=== PATIENT | male | born 1960 | race Caucasian/White ===

== ENCOUNTER 2024-02-25 20:14 | Inpatient (IN) | payer OTHER, SELFPAY ==
[2024-02-25 16:33] VITALS: BP 148/91
[2024-02-25 17:01] LABS: Urine Albumin 1+ (Neg - Trace); Urine Bilirubin 1+ (Negative); Urine Character Clear (Clear); Urine Color Amber; Urine Glucose Negative (Negative); Urine Ketone 1+ (Negative); Urine Leukocyte 1+ (Negative); Urine Nitrite Positive (Negative); Urine Occult Blood 1+ (Negative); Urine Specific Gravity 1.025 (<1.030); Urine Urobilinogen 2+ (Neg - 1+)
[2024-02-25 17:02] LABS: % Basophils 0.5 % (0-2); % Immature Granulocytes 1.2 % (0-0.5); % Lymphocytes 7.1 % (20.5-51.1); % Monocytes 2.6 % (1.7-9.3); % Neutrophils 88.6 % (42.2-75.2); Absolute Basophils 0.1 10^3/uL (0-0.2); Absolute Immature Granulocytes 0.3 10^3/uL (0-0.05); Absolute Lymphocytes 1.6 10^3/uL (1.2-3.4); Absolute Monocytes 0.6 10^3/uL (0.1-0.6); Absolute Neutrophils 20.4 10^3/uL (1.4-6.5); Hematocrit 38.9 % (39.0-52.0); Hemoglobin 13.8 g/dL (13.0-18.0); Mean Corp Hgb Conc. 35.5 g/dL (33.0-37.0); Mean Corpuscular Hgb 32.7 pg (27.0-31.0); Mean Corpuscular Volume 92.2 fL (80.0-94.0); Nucleated Red Blood Cells % 0 % (-); Platelet Count 208 10^3/uL (130-400); Red Blood Cell Count 4.22 10^6/uL (4.70-6.10); Red Cell Dist. Width 13.2 % (11.5-14.5); White Blood Cell Count 23.1 10^3/uL (4.8-10.8)
[2024-02-25 17:13] LABS: Urine Squamous Cell 0-2 /LPF (Few)
[2024-02-25 17:15] LABS: Urine Bacteria Moderate (Negative); Urine White Cell 16-20 /HPF (0-5)
[2024-02-25 17:17] LABS: ALT (SGPT) 34 U/L (0-50); AST (SGOT) 58 U/L (17-59); Albumin 4.1 g/dl (3.5-5.0); Alkaline Phosphatase 108 U/L (38-126); Blood Urea Nitrogen 28 mg/dl (9-20); Calcium 9.2 mg/dl (8.4-10.2); Carbon Dioxide 28 mmol/L (22-30); Chloride 97 mmol/L (98-107); Glucose 154 mg/dl (70-99); Potassium 4.4 mmol/L (3.5-5.1); Sodium 133 mmol/L (135-145); Total Bilirubin 4.6 mg/dl (0.2-1.3); Total Protein 7.8 g/dl (6.3-8.2); eGFR > 60.00
[2024-02-25 18:07] VITALS: BP 155/79
--- NOTE | 2024-02-25 18:10 | ED.GENMED ---
History of Present Illness
General
Chief Complaint: Fever
Time Seen by Provider: 02/25/24 18:10
Travel History
Have you had any contact with someone who has COVID-19?: No
Do you have any symptoms of coronavirus? Fever > 100 degrees, chills, cough, shortness of breath, sore throat, loss of taste or smell, muscle aches, or headache?: No
History of Present Illness
History of Present Illness:
HPI: Patient presents with fevers and myalgias associate with nausea. He reports having COVID flu and strep test that were all negative during care. He also had some vague dysuria. He has no back pain or other symptoms that would be suggestive of
a ureteral stone. He has no cough.
EXAM:
GENERAL: Well appearing in no distress
HEENT: Moist oral mucosa
CARDIOVASCULAR: No murmurs, initial heart rate was tachycardic, regular rhythm, No chest wall tenderness
PULMONARY: No respiratory distress, breath sounds are clear and equal
ABDOMEN: Soft with no peritoneal signs, no tenderness
NEUROLOGIC: Excellent strength all extremities, no coordination deficits
PSYCHIATRIC: Appropriate mental status, normal insight and judgement
EXTREMITIES: Nontender, no edema, moves all extremities equally
SKIN: No rash, no lesions
TIME OF INITIAL ENCOUNTER: 6:40 PM
NUMBER AND COMPLEXITY OF PROBLEMS ADDRESSED AT THE ENCOUNTER
� Chronic conditions affecting care: No significant past medical history
� Acute Exacerbation and/or Progression of Chronic Illness: This is an acute problem
� Differential Diagnosis includes: UTI, sepsis, COVID/flu has been ruled out by urgent care, pneumonia unlikely as he has no cough and clear lungs
AMOUNT AND/OR COMPLEXITY OF DATA TO BE REVIEWED AND ANALYZED
� I performed an independent evaluation of and my interpretation is:
EKG:
CT:
X-rays:
Laboratory Studies: White count is 23.1, urinalysis shows 16-20 white cells with positive nitrite
Other:
� Review of other/old records: No old records available for review
� Clinical information was obtained by an independent historian: None needed
� Prescriptions/Medications Considered but not given:
� Further testing considered but not performed:
RISK OF COMPLICATIONS AND/OR MORBIDITY OR MORTALITY OF PATIENT MANAGEMENT
� Social determinants of health affecting care: Lives at home
� Discussion with other providers: Hospitalist for admission at 7:02 PM, Dr. Castillo.
� Escalation of care including admission/observation vs risk of discharge considered: Consider discharge however the patient's white count is 23,000 and he arrived tachycardic with a heart rate of 109. I am concerned for the
likelihood of sepsis due to UTI. He has no pain currently therefore doubt infected ureteral stone. Lactic was normal.
Phy Exam
Physical Exam
Physical Exam:
See HPI
Course
Orders/Labs/Results
Orders:
Orders
02/25/24 16:47
Complete Blood Count/With Diff Urgent
Comprehensive Metabolic Panel Urgent
Urinalysis Reflex To Culture Urgent
Date Specimen was Collected: 02/25/24
Time Specimen was Collected: 16:39
Urine Microscopic Reflex Cult Urgent
Urine Culture Urgent
ANNA Source: U
Specimen Description:
Date Specimen was Collected: 02/25/24
Time Specimen was Collected: 16:39
02/25/24 18:11
0.9% Sodium Chloride 1000 ml [Nss] 1,000 ml IV BOLUS
02/25/24 18:24
Lactic Acid Q4H
Comment: CANCEL 2nd LACTIC ACID IF 1st LACTIC ACID IS LESS THAN 2
Blood Culture Q30M
ANNA Source: Blood/Venous
Specimen Description:
Blood Culture Q30M
ANNA Source: Blood/Venous
Specimen Description:
02/25/24 19:02
CefTRIAXone [Rocephin] 1,000 mg IV NOW STA
Abnormal Lab Results
02/25/24
16:47
WBC 23.1 H 10^3/uL
(4.8-10.8)
RBC 4.22 L 10^6/uL
(4.70-6.10)
Hct 38.9 L %
(39.0-52.0)
MCH 32.7 H pg
(27.0-31.0)
Abs Immat Gran (auto) 0.3 H 10^3/uL
(0-0.05)
Absolute Neuts (auto) 20.4 H 10^3/uL
(1.4-6.5)
Immature Gran % 1.2 H %
(0-0.5)
Neutrophils % 88.6 H %
(42.2-75.2)
Lymphocytes % 7.1 L %
(20.5-51.1)
Sodium 133 L mmol/L
(135-145)
Chloride 97 L mmol/L
(98-107)
BUN 28 H mg/dl
(9-20)
Glucose 154 H mg/dl
(70-99)
Total Bilirubin 4.6 H mg/dl
(0.2-1.3)
Urine Ketones 1+ A
(Negative)
Ur Occult Blood Reflex 1+ A
(Negative)
Urine Nitrite (Reflex) Positive A
(Negative)
Urine Bilirubin 1+ A
(Negative)
Urine Urobilinogen 2+ A
(Neg - 1+)
Leukocyte Esterase Rfl 1+ A
(Negative)
Urine RBC 3-6 A /HPF
(0-2)
Urine WBC (Reflex) 16-20 A /HPF
(0-5)
Urine Bacteria (Reflex) Moderate A
(Negative)
Urine Albumin (Reflex) 1+ A
(Neg - Trace)
02/25/24 16:47
02/25/24 16:47
Vital Signs
Initial and Last Documented VS:
Initial Vital Signs
Temp Pulse Resp BP Pulse Ox
99.2 F 109 20 148/91 99
02/25/24 16:33 02/25/24 16:33 02/25/24 16:33 02/25/24 16:33 02/25/24 16:33
Last Documented Vital Signs
Temp Pulse Resp BP Pulse Ox
99.6 F 88 16 155/79 97
02/25/24 18:58 02/25/24 18:08 02/25/24 18:08 02/25/24 18:07 02/25/24 18:45
*Critical Care Note
Total Time (30-74mins, 75-104mins- exclusive of procedures): Not Applicable
ED Attending Note
-
Portions of this chart may have been created with voice recognition software.� Occasional wrong word or��sound alike� substitutions may have occurred due to the inherent limitations of voice recognition software.
Discharge Plan
Departure
Patient Disposition: Admit
Date of Disposition: 02/25/24
Time of Disposition: 19:05
Presentation/result/management discussed w/ accepting MD/DO: Hospitalist
Discharge Problem:
Acute UTI, Sepsis
Referrals:
NONE,* [Family Provider] -
Interventions
Interventions:
*General Assessment Last Done: 02/25/24 16:33
*Neglect/Abuse Screening Last Done: 02/25/24 16:33
ED- Fall Risk Assessment Last Done: 02/25/24 18:09
*ED COVID-19 Vaccine History Last Done: 02/25/24 18:28
ED- Neurological Assessment Last Done: 02/25/24 18:08
ED-Skin Assessment Last Done: 02/25/24 18:08
Discharge Date and Time
Print Language: [place] CITIZEN
[2024-02-25] MEDS: NSS 1000 IV ×2 (18:28→21:16)
[2024-02-25 18:46] LABS: Lactic Acid 1.7 mmol/L (0.7-2.0)
[2024-02-25 19:00] VITALS: BP 123/79
--- NOTE | 2024-02-25 19:06 | HPS.HSE ---
Addendum entered and electronically signed by Elvira Castillo MD 03/04/24 18:43:
Allergies
Allergy/AdvReac Type Severity Reaction Status Date / Time
No Known Allergies Allergy Verified 02/25/24 16:37
Home Medications
acetaminophen 500 mg tablet 1,000 mg PO Q6H PRN mild pain 02/25/24
ibuprofen 200 mg capsule 400 mg PO Q6H PRN mild pain 02/25/24
finasteride 5 mg tablet 5 mg PO DAILY #30 tabs 02/28/24
levofloxacin 750 mg tablet 750 mg PO DAILY #10 tabs 02/28/24
phenazopyridine 100 mg tablet 100 mg PO Q8 PRN urinary pain #30 tabs 02/28/24
tamsulosin 0.4 mg capsule 0.8 mg (2 x 0.4 mg) PO DAILY #60 caps 02/28/24
Addendum entered and electronically signed by Elvira Castillo MD 02/25/24 22:48:
PVR was 65ml
Original Note:
Family Physician
-
Family Physician: * NONE
Chief Complaint
-
fevers
History of Present Illness
Mr. Eddy Breaux is a 63 yo man with hx presents to the ER with fevers x 3 days. He was seen at with negative testing for flu, covid and strep.
Patient reports that over the past few days he has had urinary urgency but then not a significant amount of urine will exit. He saw mild hematuria today. He denies any pain in groin, abdomen or back. He has had fevers up to 101. Associated with
nausea and decreased appetite. No vomtiing. No diarrhea.
No headache. No chest pain. No shortness of breath. Patient has chronic right knee swelling and is due for an outpatient MRI. Right knee is not red or tender to touch. He can flex knee but it hurts when he walks. No rash.
Patient reports he has had some difficulty with urinating over past several months.
Medical History
Past Medical History
Past Medical History: Reports Other (patient was diagnosed with hypertension and prescribed medication but lost weight on his own and does not need medication now (never took))
Past Surgical History: Reports None
Social History
Tobacco: Other (occasional cigars )
Alcohol: None
Family History
Family History: Not pertinent
Allergies / Home Medications
Allergies reflects when Allergies were last updated in [employer].
Home Medications with original date entered in [employer]
Allergy/Medication List:
Allergies
Allergy/AdvReac Type Severity Reaction Status Date / Time
No Known Allergies Allergy Verified 02/25/24 16:37
Review of Systems
-
History Source: Patient
A 12 point ROS was completed and negative except as noted: Yes
Physical Exam
Vital Signs
Vital Signs
Temp Pulse Resp BP Pulse Ox
99.6 F 88 16 155/79 97
02/25/24 18:58 02/25/24 18:08 02/25/24 18:08 02/25/24 18:07 02/25/24 18:45
Physical Exam
General: No Apparent Distress
HEENT: PERRLA
Respiratory: Clear; No Wheezes
Cardiac: S1/S2 and Regular Rhythm
GI: Soft, Non Tender and Non Distended
Genito-urinary: No costovertebral tender
Musculoskeletal: Other (right knee with swelling, non-tender, no erythema; can flex knee without pain ); No Clubbing, No Clubbing or Cyanosis
Skin: Warm and Dry; No Rash
Neuro: AO x 3
Psych: Calm
Laboratory Results
-
02/25/24 16:47
02/25/24 16:47
Laboratory Results
Lactic Acid Cancelled 02/25/24 22:15
Total Bilirubin 4.6 mg/dl (0.2-1.3) H 02/25/24 16:47
AST 58 U/L (17-59) 02/25/24 16:47
ALT 34 U/L (0-50) 02/25/24 16:47
Alkaline Phosphatase 108 U/L (38-126) 02/25/24 16:47
Data Reviewed
-
Diagnostic Radiology: Report Reviewed by me
Lab Data: Labs Reviewed by me
Impression/Plan
-
Mr. Eddy Breaux is a 63 yo man with hx presents to the ER with fevers x 3 days in setting of urinary urgency. He was seen at with negative testing for flu, covid and strep.
Triage VS: T 99.2, P 109, RR 20, BP 148/91, SpO2 99%
LABS: WBC 23.1, Hg 13.8, PLT 208, Na 133, K+ 4.4, Cl 97, BUN 28, Cr 1.1, Glucose 154, T. Bili 4.6, lactate 1.7
UA with 16-20 WBC, 1+ leuk esterase, 3-6 RBC
SEPSIS 2/2 UTI
URINARY URGENCY
-patient denies back pain or groin/pelvic pain to suggest nephrolithiasis, patient with likely predisposing BPH given report of difficulty urinating
-admit to tele
-F/U PVR
-continue IV Ceftriaxone started in ER
-IVF
-F/U urine and blood cultures
-if slow response to antibiotics, patient would need a CT
-outpatient Urology referral given likely BPH
DVT PPx Lovenox subQ
FULL CODE
[2024-02-25] MEDS: ROCEPHIN 1000 MG IV (19:21)
[2024-02-25 20:00] VITALS: BP 125/75
[2024-02-25 21:00] VITALS: BP 118/72
[2024-02-26] VITALS (10 sets, daily range): BP systolic 109–166; BP diastolic 74–91
[2024-02-26] MEDS: TYLENOL 650 MG PO ×5 (00:51→23:25)
[2024-02-26 05:44] LABS: % Basophils 0.3 % (0-2); % Immature Granulocytes 1.4 % (0-0.5); % Lymphocytes 10.5 % (20.5-51.1); % Monocytes 4.5 % (1.7-9.3); % Neutrophils 83.3 % (42.2-75.2); Absolute Basophils 0.1 10^3/uL (0-0.2); Absolute Immature Granulocytes 0.2 10^3/uL (0-0.05); Absolute Lymphocytes 1.8 10^3/uL (1.2-3.4); Absolute Monocytes 0.8 10^3/uL (0.1-0.6); Absolute Neutrophils 13.8 10^3/uL (1.4-6.5); Hematocrit 33.2 % (39.0-52.0); Hemoglobin 11.9 g/dL (13.0-18.0); Mean Corp Hgb Conc. 35.8 g/dL (33.0-37.0); Mean Corpuscular Hgb 33.1 pg (27.0-31.0); Mean Corpuscular Volume 92.2 fL (80.0-94.0); Mean Platelet Volume 9.1 fL (7.4-10.4); Nucleated Red Blood Cells % 0 % (-); Platelet Count 154 10^3/uL (130-400); Red Cell Dist. Width 13.3 % (11.5-14.5); White Blood Cell Count 16.6 10^3/uL (4.8-10.8)
[2024-02-26 06:12] LABS: ALT (SGPT) 34 U/L (0-50); AST (SGOT) 52 U/L (17-59); Albumin 3.1 g/dl (3.5-5.0); Alkaline Phosphatase 103 U/L (38-126); Blood Urea Nitrogen 23 mg/dl (9-20); Calcium 8.2 mg/dl (8.4-10.2); Carbon Dioxide 23 mmol/L (22-30); Chloride 104 mmol/L (98-107); Direct Bilirubin 0.8 mg/dl (0.0-0.4); Estimated Creatinine Clearance 91 ml/min; Glucose 107 mg/dl (70-99); Magnesium 1.9 mg/dl (1.6-2.3); Potassium 3.7 mmol/L (3.5-5.1); Sodium 132 mmol/L (135-145); Total Protein 6.4 g/dl (6.3-8.2); eGFR > 60.00
[2024-02-26] MEDS: NSS 1000 IV ×2 (07:12→18:06)
--- NOTE | 2024-02-26 09:50 | W.PN.HOSP.TC ---
Today's Communication/Plan
-
continue Rocephin, IVF
CT scan of abd/pelvis
pending progression, consider urology referral
Assessment / Plan
Assessment / Plan
Mr. Eddy Breaux is a 63 yo man with hx presents to the ER with fevers x 3 days in setting of urinary urgency. He was seen at with negative testing for flu, covid and strep.
Triage VS: T 99.2, P 109, RR 20, BP 148/91, SpO2 99%
LABS: WBC 23.1-->16.6, Hg 13.8, PLT 208, Na 133-->132, K+ 4.4, Cl 97, BUN 28, Cr 1.1, Glucose 154, T. Bili 4.6, lactate 1.7
UA with 16-20 WBC, 1+ leuk esterase, 3-6 RBC
SEPSIS 2/2 UTI
URINARY URGENCY, pt continues to feel he is having difficulty in passing urine
-patient denies back pain or groin/pelvic pain to suggest nephrolithiasis, patient with likely predisposing BPH given report of difficulty urinating
-admit to tele
-F/U PVR
-continue IV Ceftriaxone started in ER
-IVF
-F/U urine and blood cultures
-As pt not ready for dc, will order a CT
-outpatient Urology referral given likely BPH
DVT PPx Lovenox subQ
FULL CODE
Anticipated Discharge: 24 - 48 hours
Subjective/Interval History
-
Date of Service: February 26, 2024
Awake, alert
Objective Data
-
Labs:
Laboratory Results
02/26/24
05:36
WBC 16.6 H
Hgb 11.9 L
Hct 33.2 L
Plt Count 154 D
Sodium 132 L
Potassium 3.7
Chloride 104
Carbon Dioxide 23
BUN 23 H
Creatinine 0.9
Glucose 107 H
Calcium 8.2 L
Total Bilirubin 3.0 H
AST 52
ALT 34
Alkaline Phosphatase 103
Vital Signs:
Vital Signs
Temp Pulse Resp BP Pulse Ox
99.8 F 81 18 149/79 98
02/26/24 07:20 02/26/24 07:20 02/26/24 07:20 02/26/24 07:20 02/26/24 07:20
I&O
02/25/24 02/26/24 02/27/24
06:59 06:59 06:59
Output Total 325 / 325
Balance -325 / -325
Review of Systems
-
History Source: Patient
Constitutional: Denies Fever (99.8)
Respiratory: Reports No Symptoms
Cardiac: Reports No Symptoms
Abdomen/GI: Reports No Symptoms
Physical Exam
-
General: Well Developed, Well Nourished and No Apparent Distress
HEENT: Normocephalic, Atraumatic and Moist Mucous Membranes
Respiratory: Clear to Auscultation; Negative Wheezes, Rales or Rhonchi
Cardiac: Regular Rhythm and S1/S2
GI: Soft, Nontender and Nondistended
Musculoskeletal: No Clubbing, No Cyanosis and No Edema
Neuro: Awake, Alert and Oriented
[2024-02-26] MEDS: LOVENOX 40 MG SC (17:32)
[2024-02-26] MEDS: ROCEPHIN 1000 MG IV (19:43)
[2024-02-26] MEDS: STERILE WATER FOR INJECTION 10 ML IV (19:44)
[2024-02-26] MEDS: Pyridium 100 MG PO (20:45)
[2024-02-26] MEDS: ZOFRAN 4 MG PO (20:45)
[2024-02-27] MEDS: NSS 1000 IV ×3 (00:39→23:39)
[2024-02-27 03:39] VITALS: BP 139/76
[2024-02-27 07:30] VITALS: BP 155/90
[2024-02-27] MEDS: TYLENOL 650 MG PO ×2 (09:35→20:12)
[2024-02-27] MEDS: Pyridium 100 MG PO ×3 (09:43→23:42)
--- NOTE | 2024-02-27 09:52 | W.PN.HOSP.TC ---
Today's Communication/Plan
-
follow WBC, fever curve
continue Rocephin
continue IVF
add Flomax/Proscar for suspected BPH
Assessment / Plan
Assessment / Plan
Assessment:
Sepsis (leukocytosis, E. Coli UTI, tachycardia, fever)
- suspected underlying BPH
- CT: Evaluation, particularly of the urinary tract markedly limited without intravenous contrast, without gross findings to suggest obstructive uropathy bilaterally. Mild bilateral nonspecific perinephric stranding. Evaluation for focal infectious
process of the kidneys such as pyelonephritis markedly limited without intravenous contrast. Unopacified virtually completely empty urinary bladder with at least mild relative diffuse wall thickening which may be on the basis of underdistention or
bladder outlet obstruction (prostate gland enlargement). Unfortunately, intrinsic urinary bladder abnormality such as cystitis cannot be excluded.
- continue Rocephin, day 214. Urine culture with multi-drug resistance E. Coli. Bcx so far NGTD.
- follow PVRs
- add Flomax/Proscar
- continue Pyridium
- avoid SC/Díaz if able
Hyponatremia
- continue IVF; monitor BMP
DVT ppx: Lovenox
Code: Full
Anticipated Discharge: 24 - 48 hours
Subjective/Interval History
-
Date of Service: February 27, 2024
Febrile this morning, 101
reports slow improving
Objective Data
-
Labs:
Laboratory Results
02/27/24
09:42
WBC Pending
Hgb Pending
Hct Pending
Plt Count Pending
Sodium Pending
Potassium Pending
Chloride Pending
Carbon Dioxide Pending
BUN Pending
Creatinine Pending
Glucose Pending
Calcium Pending
Vital Signs:
Vital Signs
Temp Pulse Resp BP Pulse Ox
101.1 F H 73 20 155/90 98
02/27/24 07:30 02/27/24 07:30 02/27/24 07:30 02/27/24 07:30 02/27/24 07:30
I&O
02/26/24 02/27/24 02/28/24
06:59 06:59 06:59
Intake Total 480 / 480
Output Total 325 / 325
Balance -325 / -325 480 / 480
Physical Exam
-
General: No Apparent Distress
HEENT: Normocephalic and Atraumatic
Respiratory: Negative Wheezes or Rales
Cardiac: Regular Rhythm and S1/S2
GI: Soft and Nontender
Genito-urinary: No Costovertebral Tender
Neuro: AO x 3
Psych: Calm
Data Reviewed
-
Total Time Spent with Patient (in minutes): 44
Labs: Labs Reviewed by me
[2024-02-27 10:40] LABS: % Basophils 0.5 % (0-2); % Eosinophils 0.2 % (0-6); % Immature Granulocytes 0.3 % (0-0.5); % Lymphocytes 13.3 % (20.5-51.1); % Monocytes 3.7 % (1.7-9.3); Absolute Lymphocytes 0.8 10^3/uL (1.2-3.4); Absolute Monocytes 0.2 10^3/uL (0.1-0.6); Absolute Neutrophils 4.8 10^3/uL (1.4-6.5); Hemoglobin 11.4 g/dL (13.0-18.0); Mean Corp Hgb Conc. 35.6 g/dL (33.0-37.0); Mean Corpuscular Hgb 33.7 pg (27.0-31.0); Mean Corpuscular Volume 94.7 fL (80.0-94.0); Mean Platelet Volume 9.4 fL (7.4-10.4); Nucleated Red Blood Cells % 0 % (-); Platelet Count 156 10^3/uL (130-400); Red Blood Cell Count 3.38 10^6/uL (4.70-6.10); Red Cell Dist. Width 13.2 % (11.5-14.5); White Blood Cell Count 5.9 10^3/uL (4.8-10.8)
[2024-02-27 11:00] VITALS: BP 154/92
[2024-02-27 11:16] LABS: Blood Urea Nitrogen 21 mg/dl (9-20); Calcium 8.4 mg/dl (8.4-10.2); Carbon Dioxide 22 mmol/L (22-30); Chloride 107 mmol/L (98-107); Estimated Creatinine Clearance 102 ml/min; Glucose 131 mg/dl (70-99); Potassium 3.7 mmol/L (3.5-5.1); Sodium 133 mmol/L (135-145); eGFR > 60.00
[2024-02-27] MEDS: FLOMAX 0.800000000000000044 MG PO (11:37)
[2024-02-27] MEDS: PROSCAR 5 MG PO (11:38)
[2024-02-27 16:00] VITALS: BP 146/86
--- NOTE | 2024-02-27 16:55 | CM ---
passport support manager reviewed patient's chart and met with patient and patient lives with significant other in a 2 story home, patient is independent with adl's and ambulation, no dme, patient drives. [facility] pharmacy, no PCP, manager of case management provided patient with
a list of local PCP's.
Plan; Home when stable, no needs.
[2024-02-27] MEDS: LOVENOX 40 MG SC (17:02)
[2024-02-27 20:01] VITALS: BP 156/95
[2024-02-27] MEDS: STERILE WATER FOR INJECTION 10 ML IV (20:13)
[2024-02-27] MEDS: ROCEPHIN 1000 MG IV (20:13)
[2024-02-27 23:37] VITALS: BP 149/93
[2024-02-28 03:52] VITALS: BP 151/75
[2024-02-28 07:00] VITALS: BP 159/94
[2024-02-28 07:08] LABS: Hematocrit 32.9 % (39.0-52.0); Hemoglobin 11.4 g/dL (13.0-18.0); Mean Corp Hgb Conc. 34.7 g/dL (33.0-37.0); Mean Corpuscular Hgb 32.4 pg (27.0-31.0); Mean Corpuscular Volume 93.5 fL (80.0-94.0); Mean Platelet Volume 9.5 fL (7.4-10.4); Platelet Count 143 10^3/uL (130-400); Red Blood Cell Count 3.52 10^6/uL (4.70-6.10); Red Cell Dist. Width 13.3 % (11.5-14.5)
[2024-02-28 07:30] LABS: Blood Urea Nitrogen 18 mg/dl (9-20); Calcium 8.4 mg/dl (8.4-10.2); Carbon Dioxide 21 mmol/L (22-30); Chloride 109 mmol/L (98-107); Estimated Creatinine Clearance 102 ml/min; Glucose 106 mg/dl (70-99); Potassium 3.8 mmol/L (3.5-5.1); Sodium 133 mmol/L (135-145); eGFR > 60.00
[2024-02-28] MEDS: PROSCAR 5 MG PO (08:50)
[2024-02-28] MEDS: Pyridium 100 MG PO (08:50)
[2024-02-28] MEDS: FLOMAX 0.800000000000000044 MG PO (08:50)
[2024-02-28] MEDS: NSS IV (09:10)
--- NOTE | 2024-02-28 09:18 | W.PN.HOSP.TC ---
Addendum entered and electronically signed by Sveta Man MD 02/28/24 09:25:
correction Levaquin 750mg x 10 days
Original Note:
Today's Communication/Plan
-
dc to home today
Assessment / Plan
Assessment / Plan
Assessment:
Sepsis (leukocytosis, E. Coli UTI, tachycardia, fever)
- suspected underlying BPH
- CT: Evaluation, particularly of the urinary tract markedly limited without intravenous contrast, without gross findings to suggest obstructive uropathy bilaterally. Mild bilateral nonspecific perinephric stranding. Evaluation for focal infectious
process of the kidneys such as pyelonephritis markedly limited without intravenous contrast. Unopacified virtually completely empty urinary bladder with at least mild relative diffuse wall thickening which may be on the basis of underdistention or
bladder outlet obstruction (prostate gland enlargement). Unfortunately, intrinsic urinary bladder abnormality such as cystitis cannot be excluded.
- culture with multi-drug resistance E. Coli. Bcx so far NGTD. DC on Levaquin 500mg BID x 11 further days.
- follow PVRs
- continue Flomax/Proscar
- continue Pyridium
- OP Urology f/u this week
Hyponatremia
- continue IVF; monitor BMP
DVT ppx: Lovenox
Code: Full
More than 30 minutes spent in discharge including
Final examination of the patient
Summarizing hospital stay
Instructions for continuing care to all relevant caregivers
Preparation of discharge records, prescriptions, and referral forms
Total time spent (in minutes): 41
Anticipated Discharge: Today
Subjective/Interval History
-
Date of Service: February 28, 2024
temps improving
WBC normalized
Objective Data
-
Labs:
Laboratory Results
02/28/24
05:57
WBC 4.0 L
Hgb 11.4 L
Hct 32.9 L
Plt Count 143
Sodium 133 L
Potassium 3.8
Chloride 109 H
Carbon Dioxide 21 L
BUN 18
Creatinine 0.8
Glucose 106 H
Calcium 8.4
Vital Signs:
Vital Signs
Temp Pulse Resp BP Pulse Ox
99.0 F 66 18 159/94 96
02/28/24 07:00 02/28/24 07:00 02/28/24 07:00 02/28/24 07:00 02/28/24 07:00
I&O
02/27/24 02/28/24 02/29/24
06:59 06:59 06:59
Intake Total 480 / 480 2900 / 2900
Output Total 1550 / 1550
Balance 480 / 480 1350 / 1350
Physical Exam
-
General: No Apparent Distress
HEENT: Normocephalic and Atraumatic
Respiratory: Negative Wheezes or Rales
Cardiac: Regular Rhythm and S1/S2
GI: Soft and Nontender
Genito-urinary: No Costovertebral Tender
Musculoskeletal: No Edema
Neuro: AO x 3
Hematologic / Lymphatic: No Lymphadenopathy
Psych: Calm
Data Reviewed
-
Total Time Spent with Patient (in minutes): 41
Labs: Labs Reviewed by me
--- NOTE | 2024-02-28 09:19 | PTCARENOTE ---
Dr Man at bedside. Discharge orders to be placed. Note for returning to work obtained and given to patient. IVF d/c'd
--- NOTE | 2024-02-28 09:23 | W.DS.TRANS ---
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
-
Discharge Instructions:
Discharge Diagnosis/Procedures E. coli UTI in setting of likely enlarged
prostate
Diet Regular
Activity As tolerated
Bathing Restrictions None
Instructions:
Stand-Alone Forms:
Changes to Home Medications: No
Discharge Medications:
DC Medications w/original date entered in [employer]
acetaminophen 500 mg tablet 1,000 mg PO Q6H PRN mild pain 02/25/24
ibuprofen 200 mg capsule 400 mg PO Q6H PRN mild pain 02/25/24
finasteride 5 mg tablet 5 mg PO DAILY #30 tabs 02/28/24
levofloxacin 750 mg tablet 750 mg PO DAILY #10 tabs 02/28/24
phenazopyridine 100 mg tablet 100 mg PO Q8 PRN urinary pain #30 tabs 02/28/24
tamsulosin 0.4 mg capsule 0.8 mg (2 x 0.4 mg) PO DAILY #60 caps 02/28/24
Home Medication Changes
Pending Results: No
Total time spent discharging patient (in min): 41
--- NOTE | 2024-02-28 10:18 | CM ---
Patient seen bedside, reports no concerns or needs upon discharge. Patient reports he will drive himself home. CM will continue to follow for discharge planning needs.
Plan; home no needs.
[2024-02-28 11:00] VITALS: BP 160/97
== END 2024-02-28 11:55 | disposition home or self-care (01) | DRG 872 ==
LOC: 4 WEST ACU 20:14
PROVIDERS: Emergency Medicine; Internal Medicine; ADMITTING PHYSICIAN Student in an Organized Health Care Education/Training Program; ATTENDING PHYSICIAN Internal Medicine; EMERGENCY PHYSICIAN Emergency Medicine
DX: A41.9 Sepsis, unspecified organism (principal); N39.0 Urinary tract infection, site not specified; E87.1 Hypo-osmolality and hyponatremia; Z16.24 Resistance to multiple antibiotics; F17.290 Nicotine dependence, other tobacco product, uncomplicated; I10 Essential (primary) hypertension; R39.15 Urgency of urination; B96.20 Unspecified Escherichia coli [E. coli] as the cause of diseases classified elsewhere; N40.1 Benign prostatic hyperplasia with lower urinary tract symptoms
CPT/HCPCS: 74176; 80048; 80053; 81003; 81015; 82248; 83605; 83735; 85025; 85027; 87040; 87086; 87088; 87186; 96361; 96374; 99284

== ENCOUNTER 2024-03-31 15:41 | Inpatient (IN) | payer OTHER, SELFPAY ==
[2024-03-31] VITALS (20 sets, daily range): BP systolic 112–143; BP diastolic 72–100; BMI 27.6; BMI 27.7
[2024-03-31] MEDS: TYLENOL 1000 MG PO (13:43)
[2024-03-31] MEDS: CELEBREX 200 MG PO (13:43)
[2024-03-31] MEDS: NORMOSOL-R 1000 IV ×2 (13:44→16:24)
[2024-03-31 14:01] LABS: Blood Urea Nitrogen 21 mg/dl (9-20); Estimated Creatinine Clearance 102 ml/min
--- NOTE | 2024-03-31 15:34 | HPS.HSE ---
Family Physician
-
Family Physician: INTERVIEWE UNKNOWN - PT NOT
Chief Complaint
-
recurrent fever
History of Present Illness
63-year-old male w/ past medical history of recurrent fevers, recently admitted for E. coli UTI and treated with Levaquin, recurrent right knee effusion with no obvious infectious source now presents after right knee arthroscopy and further
evaluation of fevers. Patient has lost approximate 20 pounds in 1 month, recurrent fevers along with night sweats. Also with dry cough for the last month intermittently. Last colonoscopy at age 49 (14 years ago). . Patient remains normotensive
although noted to temperature on 02/26 of 100.6 Fahrenheit. Cultures sent from arthrocentesis. Labs still pending including CRP.
Medical History
Past Medical History
Past Medical History: Reports Other (BPH, recurrent knee effusion, recurrent fevers)
Past Surgical History: Reports Orthopedic
Social History
Tobacco: Other (Occasional cigars)
Drug: None
Family History
Family History: Not pertinent
Allergies / Home Medications
Allergies reflects when Allergies were last updated in [employer].
Home Medications with original date entered in [employer]
Allergy/Medication List:
Allergies
Allergy/AdvReac Type Severity Reaction Status Date / Time
No Known Allergies Allergy Verified 03/31/24 13:11
Home Medications
ibuprofen 200 mg tablet (Advil) 400 mg PO Q6H PRN discomfort 03/29/24
tamsulosin 0.4 mg capsule (Flomax) 0.4 mg PO DAILY 03/29/24
acetaminophen 325 mg tablet (Tylenol) 650 mg PO Q4H PRN pain 03/31/24
Review of Systems
-
History Source: Patient
A 12 point ROS was completed and negative except as noted: Yes
Physical Exam
Vital Signs
Vital Signs
Temp Pulse Resp BP Pulse Ox
97.9 F 78 15 127/80 99
03/31/24 14:46 03/31/24 15:00 03/31/24 15:01 03/31/24 15:00 03/31/24 15:00
Physical Exam
General: No Apparent Distress
HEENT: PERRLA
Respiratory: Clear; No Wheezes
Cardiac: S1/S2 and Regular Rhythm
GI: Soft, Non Tender and Non Distended
Genito-urinary: No costovertebral tender
Musculoskeletal: Other (right knee wrapped, non-tender, s/p arthrocentesis); No Clubbing, No Clubbing or Cyanosis
Skin: Warm and Dry; No Rash
Neuro: AO x 3
Hematologic/Lymphatic: No Lymphadenopathy
Psych: Calm
Data Reviewed
-
Lab Data: Labs Reviewed by me
Impression/Plan
-
IMPRESSION:
63-year-old male w/ past medical history of recurrent fevers, recently admitted for E. coli UTI and treated with Levaquin, recurrent right knee effusion with no obvious infectious source now presents after right knee arthroscopy and further
evaluation of fevers. has been coughing more frequently
PLAN:
#Recurrent fevers
-unknown source although no obvious signs of infection at this time and previous synovial fluid has been unremarkable; May point towards Rheum v malignancy etiology;
-F/u blood cultures for completeness sake
-ID was consulted by ortho
-F/u synovial fluid
-DVT studies
-CT C/A/P for evaluation of indolent infection v malignancy
-F/u ESR
-Fu ROSEMARY, RF
Recurrent Right Knee Effusion
-f/u synovial fluid, cultures
#BPH
-cont tamsuolin
#DVT ppx
-hsq
--- NOTE | 2024-03-31 16:23 | CON.ID ---
Consultation
-
Date/Time Consultation Requested: 03/31/24 15:03
Date/Time Consultation Performed: 03/31/24 16:24
Requesting Provider: Dr Romano
Performing Provider: Dr Bass
Reason for Consultation: septic joint
Chief Complaint / Past History
Chief Complaint
fevers
History of Present Illness
Mr Breaux is a 63 year old male with recent history of E coli UTI without bacteremia 02/25/24, diverticulosis otherwise generally well admitted here for right knee effusion. He was first seen in orthopedics office Oct 2023 with xrays showing
moderate OA L>R. He had arthrocentesis of right kneewith return of yellow fluid and steroid injection. Initially with improvement of pain, then with relapse of swelling. Seen again Dec for right knee effusion, aspirated with 90 ml clear fluid
and again had steroid injection. He was advised to have MRI and lyme serologies however these were not done. Then with UTI due to E coli without bacteremia 02/24 but with fevers (resolved) for about 5 days. Right knee effusion returned and he was
seen in orthopedics office 03/18, aspiration for 200 mL of cloudy fluid - no steroid injection, sent for analysis and MRI. He was refered to the ER but refused to go. Developed fevers and chills. Body fluid resulted with wbcs 17K, gram stain with
s mutans in broth, lyme and cyrstal negative. She was started on doxycycline 100 mg PO BID and a medrol dose pack. 'lyme testing negative' doxycycline was stopped. MRI done showed synovitis, bone marrow edema concerning for septic arthritis
Reports hasnt seen dentist in about 2 years. No dental pain; staining on the teeth is noted; filled caries noted. No swelling of the gums.
Since arrival no recorded fevers, bp stable, mild leukocytosis noted at 10.9, hgb also 10.9, plt 315, L shift is noted, cr 0.8, mild hyperglycemia noted, t bili 0.8, ast 52, alt 91, alk pohs 204, crp 69, body fluid analysis is pending, lyme
serologies and PCR sent
Past History
Additional Past Medical History:
BPH, recurrent knee effusion, recurrent fevers
Additional Past Surgical History:
as per hpi
Allergy History:
No Known Allergies Allergy (Verified 03/31/24 13:11)
Medications Reviewed: Yes
Social History
Tobacco: Smoker (occasional cigar)
Drug: None
Personal: Partner (girlfriend)
Family History
Family History: Not Pertinent
Review of Systems
Review of Systems
General: Fever and Chills
All systems: All other systems were reviewed and were negative
Vital Signs
Temp Pulse Resp BP Pulse Ox
97.9 F 75 12 122/82 98
03/31/24 14:46 03/31/24 15:45 03/31/24 15:45 03/31/24 15:45 03/31/24 15:45
Physical Exam
Physical Exam
Constitutional: No Acute Distress
Head: Other (staining on the teeth is noted; filled caries noted. No swelling of the gums)
Cardiovascular: Regular Rate and S1/S2; Negative Murmur or Rub
Pulmonary: Clear and Symmetric; Negative Wheezes, Rales or Rhonchi
Gastrointestinal: Soft, Non Tender, Non Distended and Normal Bowel Sounds
Musculoskeletal: Other (right knee in post operative dressing)
Skin: Warm and Dry; Negative Rash or Jaundice
Neurological: Awake
Microbiology Results
Micro:
03/31/24 16:03 Blood Culture - Pending
Blood/Venous
03/31/24 14:15 Body Fluid Culture - Pending
Joint Fluid Gram Stain - Pending
Assessment / Plan
Suspected Septic Arthritis
Fevers
- will follow up body fluid and blood cultures
- VGS (s mutans) from previous arthroecentesis broth culture of interest - rarely case of [place] valve septic joint have been reported
- repeat blood cultures x2 are to be done - please ensure two separate draws
- panellipse
- lyme pcr has been sent; outpatient lyme testing reportedly negative - request records
- low concern for recent UTI as cause of secondary septic jiont given that patient did not have bacteremia, isolate was gram negative
- switch to ceftriaxone
- follow up ct c/a/p
- follow clinically; further workup for outpatient fevers pending course
[2024-03-31 16:27] LABS: % Basophils 0.1 % (0-2); % Eosinophils 0.2 % (0-6); % Immature Granulocytes 0.5 % (0-0.5); % Lymphocytes 9.1 % (20.5-51.1); % Monocytes 2.4 % (1.7-9.3); % Neutrophils 87.7 % (42.2-75.2); Absolute Immature Granulocytes 0.1 10^3/uL (0-0.05); Absolute Monocytes 0.3 10^3/uL (0.1-0.6); Absolute Neutrophils 9.6 10^3/uL (1.4-6.5); Hematocrit 31.9 % (39.0-52.0); Hemoglobin 10.9 g/dL (13.0-18.0); Mean Corp Hgb Conc. 34.2 g/dL (33.0-37.0); Mean Corpuscular Hgb 31.1 pg (27.0-31.0); Mean Corpuscular Volume 91.1 fL (80.0-94.0); Mean Platelet Volume 8.7 fL (7.4-10.4); Nucleated Red Blood Cells % 0 % (-); Platelet Count 315 10^3/uL (130-400); Red Cell Dist. Width 12.8 % (11.5-14.5); White Blood Cell Count 10.9 10^3/uL (4.8-10.8)
[2024-03-31 16:32] LABS: Blood Urea Nitrogen 20 mg/dl (9-20); Calcium 8.8 mg/dl (8.4-10.2); Carbon Dioxide 25 mmol/L (22-30); Chloride 103 mmol/L (98-107); Estimated Creatinine Clearance 102 ml/min; Glucose 108 mg/dl (70-99); Potassium 4.4 mmol/L (3.5-5.1); Sodium 133 mmol/L (135-145); eGFR > 60.00
[2024-03-31] MEDS: OMNIPAQUE 50 ML PO (16:40)
[2024-03-31 16:50] LABS: ALT (SGPT) 91 U/L (0-50); AST (SGOT) 52 U/L (17-59); Albumin 3.1 g/dl (3.5-5.0); Alkaline Phosphatase 204 U/L (38-126); Direct Bilirubin 0.5 mg/dl (0.0-0.4); Total Bilirubin 0.8 mg/dl (0.2-1.3); Total Protein 6.6 g/dl (6.3-8.2)
[2024-03-31 17:09] LABS: Body Fluid Mononuclear 3.9 %; Body Fluid Polymorphonuclear 96.1 %; Body Fluid WBC 29950 /CUMM
[2024-03-31 17:13] LABS: Body Fluid Second Tech EYM
[2024-03-31] MEDS: ROCEPHIN 2000 MG IV (17:22)
[2024-03-31 18:08] LABS: COVID-19 Antigen Negative (Negative)
[2024-03-31] MEDS: STERILE WATER FOR INJECTION 20 ML IV (19:35)
[2024-03-31] MEDS: COLACE 100 MG PO (20:48)
[2024-03-31] MEDS: SENOKOT 17.1999999999999993 MG PO (20:48)
[2024-03-31] MEDS: ASPIRIN 325 MG PO (20:48)
[2024-03-31] MEDS: CELEBREX 100 MG PO (20:53)
[2024-03-31 21:08] LABS: Urine Albumin Negative (Neg - Trace); Urine Bilirubin Negative (Negative); Urine Character Clear (Clear); Urine Color Yellow; Urine Glucose Negative (Negative); Urine Ketone Negative (Negative); Urine Leukocyte Negative (Negative); Urine Nitrite Negative (Negative); Urine Occult Blood Negative (Negative); Urine Urobilinogen Negative (Neg - 1+); Urine pH 6.5 (5.0-9.0)
[2024-03-31] MEDS: HEPARIN 5000 UNITS SC (23:06)
[2024-04-01] VITALS (7 sets, daily range): BP systolic 133–168; BP diastolic 76–86; PULSE 68; O2SAT 98
[2024-04-01] MEDS: NORMOSOL-R 1000 IV ×2 (03:29→19:30)
--- NOTE | 2024-04-01 04:10 | PTCARENOTE ---
Pt arrived at 19:35 from PACU post Right Knee I&D. SO who works at was with pt. Pt reports no pain, bed in low position, call light within reach. So other on a regular diet and had dinner brought in by GABBY.
[2024-04-01 05:19] LABS: Hematocrit 32.8 % (39.0-52.0); Hemoglobin 11.5 g/dL (13.0-18.0); Mean Corp Hgb Conc. 35.1 g/dL (33.0-37.0); Mean Corpuscular Hgb 31.1 pg (27.0-31.0); Mean Corpuscular Volume 88.6 fL (80.0-94.0); Platelet Count 341 10^3/uL (130-400); Red Cell Dist. Width 12.6 % (11.5-14.5); White Blood Cell Count 9.9 10^3/uL (4.8-10.8)
[2024-04-01 05:42] LABS: ALT (SGPT) 75 U/L (0-50); AST (SGOT) 44 U/L (17-59); Albumin 2.7 g/dl (3.5-5.0); Alkaline Phosphatase 192 U/L (38-126); Blood Urea Nitrogen 23 mg/dl (9-20); Calcium 8.5 mg/dl (8.4-10.2); Carbon Dioxide 24 mmol/L (22-30); Chloride 104 mmol/L (98-107); Estimated Creatinine Clearance > 125 ml/min; Glucose 258 mg/dl (70-99); Potassium 4.6 mmol/L (3.5-5.1); Sodium 131 mmol/L (135-145); Total Bilirubin 0.4 mg/dl (0.2-1.3); Total Protein 6.1 g/dl (6.3-8.2); eGFR > 60.00
--- NOTE | 2024-04-01 07:17 | W.PN.ORTHO ---
Addendum entered and electronically signed by Frankie Hogan PA-C 04/01/24 12:49:
Tissue culture no growth (preliminary)
Gram Stain No WBC and no organisms
Original Note:
Today's Communication / Plan
-
PT/OT
Weightbearing as tolerated
Heparin ordered so DC aspirin
Ceftriaxone per ID recommendations
Cultures pending
Appreciate medicine and ID input
Assessment
.
Dressing:
Clean, dry and intact.
Plan
.
Surgery / Date: R knee arthroscopic I & D 03/31 Juan Antonio
DVT Prophylaxis: Heparin
Activity:
Out of bed.
PT/OT
Discharge Plan: Home
Subjective
.
.:
Patient resting comfortably.
Vital Signs and Labs
.
Vital Signs and Labs:
Lab Results
04/01/24 04:22
04/01/24 04:22
Temp Pulse Resp BP Pulse Ox
97.3 F 56 14 168/86 100
04/01/24 03:00 04/01/24 03:00 04/01/24 03:00 04/01/24 03:00 04/01/24 03:00
CRP 69.00
UA negative
Cell count WBC 29,995
No crystals seen
Lyme pending
Influenza A/B negative
COVID negative
Blood cultures pending
Cultures right knee pending
CT scan chest, abdomen and pelvis mild bilateral atelectasis but otherwise negative
Orthopantogram right mandibular molar infection?
[2024-04-01] MEDS: COLACE 100 MG PO ×2 (08:58→20:47)
[2024-04-01] MEDS: FLOMAX 0.400000000000000022 MG PO (08:58)
[2024-04-01] MEDS: CELEBREX 100 MG PO ×2 (08:58→20:47)
[2024-04-01] MEDS: SENOKOT 17.1999999999999993 MG PO ×2 (08:58→20:47)
[2024-04-01] MEDS: HEPARIN 5000 UNITS SC ×3 (08:59→23:09)
[2024-04-01 10:25] LABS: Glycohemoglobin (HgbA1c) 5.8 % (4.0-5.6)
--- NOTE | 2024-04-01 10:53 | CM ---
Addendum entered by Jorge Asencio 04/01/24 15:40:
CM spoke to [facility] liaison Angi and she stated she will meet with pt tomorrow morning and no VN agency needs to be arranged. [facility] will provide RN.
Addendum entered by Jorge Asencio 04/01/24 14:52:
Per ID pt will need 6 weeks of Ceftriaxone 2mg Q24 and PICC line will be placed today with a plan to discharge pt home tomorrow.
CM discussed it with the pt, pt is aware and pt has been notified that [facility] will provide home infusion therapy
A referral to [facility] made, pt's clinical with a script faxed to [facility] at [phone]
Pt stated his girlfriend is RN and he feels he will not need VN services. CM to confirm it with [facility] liaamy Whitley.
PT and OT evaluations noted - pt has no skilled needs.
D/C plan: home with [facility].
CM will follow with discharge plan updates as hospitalization progresses
Original Note:
CM following re: discharge planning.
Reviewed pt's chart, met with pt.
Pt is a 63 year old male, admitted with primary dx of POD#1 s/p R knee arthroscopic I & D.
Pt reports he lives with a girlfriend in a 2SH, 1 step to enter, has no children. 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 Pt reports he was able to get to the bathroom today without assistance and he feels he might not
need any after care VN services. Also, pt stated he will not accept any services with co-pays. Pt is aware he will be seen by PT and OT for after care recommendations and pt expressed his understanding and agreement.
PCP: Dr. Grande
Pharmacy: [facility]
D/C plan: hoe with anticipated no needs vs home PT. Awaiting for PT/OT evaluations and recommendations.
CM will follow with discharge plan updates as hospitalization progresses
--- NOTE | 2024-04-01 13:50 | W.PN.ID1 ---
Addendum entered and electronically signed by Christina Bass MD 04/01/24 15:40:
Follow up with Dr. Fajardo Brooke04/06 at 1:15PM It�s [address], [address], [place] [address] - added to Dc summary
Original Note:
Date of Service
Date of Service: April 01, 2024
Today's Communication
- continue ceftriaxone - tentatively for a 6 week course
- PICC line
- script sent to keycase assembler
- follow up scrotal US - possible mass
- TTE
- follow up with OMFS
- follow clinically; hopefully we can arrange for dc tomorrow or early Friday
Assessment / Plan
Likely Septic Arthritis
Fevers- resolved
Unintentional weight loss
- Body fluid 30K wbcs 95% PMNs - suggestive of septic arthritis
- VGS (s mutans) from outpatient arthrocentesis broth culture of interest - rarely cases of [place] valve septic joint have been reported
- current body fluid culture sent in a blood culture bottle - unable to do gram stain; tissue culture - gram stain negative
- repeat blood cultures x2 are in progress
- panelipse - 'There is significant caries disease involving a right mandibular molar, which is likely the second molar. There is also lucency surrounding the root of this molar, raising concern for periodontal infection.'
- follow up with OMFS early post discharge - tiger text sent to Dr Valdes requesting appointment
- TTE given weight loss, chronic fevers which seem to be resolving
- lyme pcr has been sent; outpatient lyme testing reportedly negative - request records
- low concern for recent UTI as cause of secondary septic joint given that patient did not have bacteremia, isolate was gram negative
- continue ceftriaxone - tentatively for a 6 week course
- PICC line
- script sent to keycase assembler
- follow up scrotal US - possible mass
- follow clinically; hopefully we can arrange for dc tomorrow or early Friday
Chief Complaint
-: Fever and Other (septic joiint)
Subjective / Review of Systems
afebrile
bp stable
leukocytosis resolved
cr 0.6
body fluid 30K wbcs and 96% PMNs
'I feel a lot better, no more fevers, and Paula got a huge appetite'
Vital Signs / Physical Exam
Vital Signs
Vital Signs
Temp Pulse Resp BP Pulse Ox
98.4 F 69 16 136/79 98
04/01/24 11:25 04/01/24 11:25 04/01/24 11:25 04/01/24 11:25 04/01/24 11:25
Physical Exam
Constitutional: No Acute Distress
Oropharyngeal: Poor Dention
Cardiovascular: Regular Rate and S1/S2; Negative Murmur or Rub
Pulmonary: Clear and Symmetric; Negative Wheezes or Rales
Gastrointestinal: Soft, Non Tender, Non Distended and Normal Bowel Sounds
Skin: Warm and Dry; Negative Rash or Jaundice
Objective Data
Lab Data
Lab Results
04/01/24 04:22
04/01/24 04:22
Estimated Creat Clear > 125 ml/min 04/01/24 04:22
Total Bilirubin 0.4 mg/dl (0.2-1.3) 04/01/24 04:22
AST 44 U/L (17-59) 04/01/24 04:22
ALT 75 U/L (0-50) H 04/01/24 04:22
Alkaline Phosphatase 192 U/L (38-126) H 04/01/24 04:22
C-Reactive Protein 69.00 mg/L (0.0-10.00) H 03/31/24 16:03
Most recent labs reviewed.
Micro Results:
03/31/24 14:15 Body Fluid Culture - Pending
Joint Fluid Gram Stain - Final
03/31/24 14:29 Tissue Culture - Preliminary
Tissue No Growth After 18-24 Hours
Gram Stain - Preliminary
03/31/24 17:16 Influenza Types A & B (ELEANOR) - Final
Nasal Swab Negative for Influenza A & B, NAAT
Negative results must be combined with clinical observations
and patient history.
Nucleic Acid Amplification test (NAAT)performed on the
[employer] platform.
03/31/24 17:03 Blood Culture - Pending
Blood/Venous
03/31/24 16:03 Blood Culture - Pending
Blood/Venous
Care Review
Plan reviewed with: Physician (Dr Sánchez, Dr Valdes - [facility] follow up)
--- NOTE | 2024-04-01 13:52 | W.PN.HOSP.TC ---
Today's Communication/Plan
-
f/u final cultures
f/u scrotal US
F/u Lyme, Hepatitis, HIV panel
Abx - defer to ID in setting of ?molar infection - will need dental eval outpatient
Assessment / Plan
Assessment / Plan
63-year-old male w/ past medical history of recurrent fevers, recently admitted for E. coli UTI and treated with Levaquin, recurrent right knee effusion with no obvious infectious source now presents after right knee arthroscopy and further
evaluation of fevers. has been coughing more frequently
PLAN:
#Recurrent fevers
-unknown source
-synovial fluid with no evidence of infection
-Orthopantogram right mandibular molar infection - this may be culprit and will need dental eval outpatient
-Anticipate switching to augmentin - will defer to ID recs
-?Scrotal Mass- F/u Scrotal US
-F.u cultures including blood
-No urinary symptoms
-F/u Lyme, hepatitis panel
-DVT negative
-F/u ROSEMARY, RF, CCP
-ordered Ferritin
#Transaminitis
-may be due to ongoing ?infection
-f/u hepatitis panel
-bili wnl and no ruq tenderness - low probability of gallbladder pathology
#Hyponatremia
-mild
-ctm
Recurrent Right Knee Effusion
-f/u synovial fluid, cultures
-no evidence of infection
#BPH
-cont tamsuolin
#DVT ppx
-hsq
Anticipated Discharge: 24 - 48 hours
Subjective/Interval History
-
Date of Service: April 01, 2024
No acute events, no focal episode overnight
Objective Data
-
Labs:
Laboratory Results
04/01/24
04:22
WBC 9.9
Hgb 11.5 L
Hct 32.8 L
Plt Count 341
Sodium 131 L
Potassium 4.6
Chloride 104
Carbon Dioxide 24
BUN 23 H
Creatinine 0.6 L
Glucose 258 H
Calcium 8.5
Total Bilirubin 0.4
AST 44
ALT 75 H
Alkaline Phosphatase 192 H
Vital Signs:
Vital Signs
Temp Pulse Resp BP Pulse Ox
98.4 F 69 16 136/79 98
04/01/24 11:25 04/01/24 11:25 04/01/24 11:25 04/01/24 11:25 04/01/24 11:25
I&O
03/31/24 04/01/24 04/02/24
06:59 06:59 06:59
Intake Total 1115 / 1115
Output Total 600 / 600 300 / 300
Balance 515 / 515 -300 / -300
Review of Systems
-
History Source: Patient
Constitutional: Denies Fever (99.8)
Respiratory: Reports No Symptoms
Cardiac: Reports No Symptoms
Abdomen/GI: Reports No Symptoms
Physical Exam
-
General: No Apparent Distress
HEENT: Normocephalic and Atraumatic
Respiratory: Negative Wheezes or Rales
Cardiac: Regular Rhythm and S1/S2
GI: Soft and Nontender
Genito-urinary: No Costovertebral Tender
Musculoskeletal: No Edema and Other (right knee wrapped)
Neuro: AO x 3
Hematologic / Lymphatic: No Lymphadenopathy
Psych: Calm
Data Reviewed
-
Total Time Spent with Patient (in minutes): 41
CT Scan: Image personally visualized and interpreted and Report Reviewed by me
Medical Tests (Nuc Med, Echo etc): Report Reviewed by me
Labs: Labs Reviewed by me
[2024-04-01 15:03] LABS: Lyme Antibody Screen, EIA Negative (Negative)
[2024-04-01] MEDS: ROCEPHIN 2000 MG IV (17:39)
[2024-04-01] MEDS: STERILE WATER FOR INJECTION 20 ML IV (17:39)
[2024-04-01 19:25] LABS: Hepatitis B Surface Antigen Negative (Negative)
[2024-04-01 19:42] LABS: Hepatitis B Surface Antibody Negative; Hepatitis C Antibody Negative (Negative)
[2024-04-01 20:28] LABS: Hepatitis A IgM Antibody Negative (Negative); Hepatitis B Core Ab, IgM Negative (Negative)
[2024-04-02 04:36] LABS: Hematocrit 29.8 % (39.0-52.0); Hemoglobin 10.5 g/dL (13.0-18.0); Mean Corp Hgb Conc. 35.2 g/dL (33.0-37.0); Mean Corpuscular Hgb 31.5 pg (27.0-31.0); Mean Corpuscular Volume 89.5 fL (80.0-94.0); Mean Platelet Volume 8.7 fL (7.4-10.4); Platelet Count 293 10^3/uL (130-400); Red Blood Cell Count 3.33 10^6/uL (4.70-6.10); Red Cell Dist. Width 12.8 % (11.5-14.5); White Blood Cell Count 10.2 10^3/uL (4.8-10.8)
[2024-04-02 04:49] LABS: ALT (SGPT) 70 U/L (0-50); AST (SGOT) 48 U/L (17-59); Albumin 2.6 g/dl (3.5-5.0); Alkaline Phosphatase 159 U/L (38-126); Blood Urea Nitrogen 23 mg/dl (9-20); Calcium 8.4 mg/dl (8.4-10.2); Carbon Dioxide 28 mmol/L (22-30); Chloride 107 mmol/L (98-107); Estimated Creatinine Clearance > 125 ml/min; Glucose 107 mg/dl (70-99); Potassium 4.2 mmol/L (3.5-5.1); Sodium 135 mmol/L (135-145); Total Bilirubin 0.4 mg/dl (0.2-1.3); Total Protein 5.9 g/dl (6.3-8.2); eGFR > 60.00
--- NOTE | 2024-04-02 08:15 | W.PN.ORTHO ---
Today's Communication / Plan
-
Cultures NGTD
PT/OT
Weightbearing as tolerated
Heparin ordered so DC aspirin
Ceftriaxone per ID recommendations
Cultures pending
Appreciate medicine and ID input
Assessment
.
Distal Motor Intact: Yes
Dressing:
Clean, dry and intact.
Plan
.
Surgery / Date: R knee arthroscopic I & D 03/31 Juan Antonio
Activity:
Out of bed.
PT/OT
Subjective
.
.:
Patient resting comfortably.
Vital Signs and Labs
.
Vital Signs and Labs:
Lab Results
04/02/24 04:13
04/02/24 04:13
Temp Pulse Resp BP Pulse Ox
98.2 F 74 16 133/79 98
04/01/24 23:00 04/01/24 23:00 04/01/24 23:00 04/01/24 23:00 04/01/24 23:00
--- NOTE | 2024-04-02 08:21 | W.PN.ID1 ---
Date of Service
Date of Service: April 02, 2024
Today's Communication
Continue abx.
Assessment / Plan
Suspected Right knee septic Arthritis
Fevers- resolved
Unintentional weight loss
- Body fluid 30K wbcs 95% PMNs - suggestive of septic arthritis
- VGS (S. mutans) from outpatient arthrocentesis broth culture
- current body fluid culture sent in a blood culture bottle - unable to do gram stain; tissue culture - gram stain negative
- repeat blood cultures x2 are in progress
- panelipse - 'There is significant caries disease involving a right mandibular molar, which is likely the second molar. There is also lucency surrounding the root of this molar, raising concern for periodontal infection.'
- follow up with OMFS early post discharge
- TTE given weight loss, chronic fevers which seem to be resolving
- lyme pcr pending
--> continue ceftriaxone - tentatively for a 6 week course
- PICC line placed
- script sent to supportive employment case manager
- follow up scrotal US - possible mass
Follow-up in office with Dr. Bass.
Chief Complaint
-: Fever and Other (Right knee septic arthritis)
Subjective / Review of Systems
Review of Systems: No Fever and No Chills
Vital Signs / Physical Exam
Vital Signs
Vital Signs
Temp Pulse Resp BP Pulse Ox
98.2 F 74 16 133/79 98
04/01/24 23:00 04/01/24 23:00 04/01/24 23:00 04/01/24 23:00 04/01/24 23:00
Physical Exam
Constitutional: No Acute Distress, Comfortable and Non-toxic
Cardiovascular: S1/S2; Negative S3/S4
Pulmonary: Non Labored
Gastrointestinal: Soft and Non Tender
Musculoskeletal: Other (right knee dressed in BRAULIO)
Skin: Warm and Dry; Negative Rash or Jaundice
Neurological: Awake and Alert
Psychological: Calm
Lines: PICC (RUE)
Objective Data
Lab Data
Lab Results
04/02/24 04:13
04/02/24 04:13
Estimated Creat Clear > 125 ml/min 04/02/24 04:13
Total Bilirubin 0.4 mg/dl (0.2-1.3) 04/02/24 04:13
AST 48 U/L (17-59) 04/02/24 04:13
ALT 70 U/L (0-50) H 04/02/24 04:13
Alkaline Phosphatase 159 U/L (38-126) H 04/02/24 04:13
C-Reactive Protein 69.00 mg/L (0.0-10.00) H 03/31/24 16:03
Most recent labs reviewed.
Micro Results:
03/31/24 17:03 Blood Culture - Preliminary
Blood/Venous No Growth in 24 hours- Final report to follow
03/31/24 16:03 Blood Culture - Preliminary
Blood/Venous No Growth in 24 hours- Final report to follow
03/31/24 14:15 Body Fluid Culture - Pending
Joint Fluid Gram Stain - Final
03/31/24 14:29 Tissue Culture - Preliminary
Tissue No Growth After 18-24 Hours
Gram Stain - Preliminary
03/31/24 17:16 Influenza Types A & B (ELEANOR) - Final
Nasal Swab Negative for Influenza A & B, NAAT
Negative results must be combined with clinical observations
and patient history.
Nucleic Acid Amplification test (NAAT)performed on the
[employer] platform.
[2024-04-02] MEDS: SENOKOT 17.1999999999999993 MG PO (08:22)
[2024-04-02] MEDS: COLACE 100 MG PO (08:22)
[2024-04-02] MEDS: FLOMAX 0.400000000000000022 MG PO (08:22)
[2024-04-02] MEDS: CELEBREX 100 MG PO (08:22)
[2024-04-02] MEDS: HEPARIN 5000 UNITS SC (08:23)
[2024-04-02 08:30] VITALS: BP 149/93
[2024-04-02 08:54] LABS: HIV Combo Negative (Negative)
[2024-04-02 12:10] VITALS: BP 142/86; PULSE 77
--- NOTE | 2024-04-02 12:19 | W.PN.HOSP.TC ---
Addendum entered and electronically signed by Meño Sánchez MD 04/03/24 16:05:
[id number]
Original Note:
Today's Communication/Plan
-
ceftriaxone - tentatively 6 weeks
f/u PCP, ID, [facility]FS, Urology, Ortho outpatient
f/u cbc, lfts outpatient
anusol
F/u GI for Colonoscopy, routine screening
Assessment / Plan
Assessment / Plan
63-year-old male w/ past medical history of recurrent fevers, recently admitted for E. coli UTI and treated with Levaquin, recurrent right knee effusion with no obvious infectious source now presents after right knee arthroscopy and further
evaluation of fevers. has been coughing more frequently
PLAN:
#Right knee effusion
#Periodontal infection
#Recurrent fevers
-most likely suspected right knee septic arthritis and periodontal infection
-cont ceftriaxone - tentatively 6 weeks; PICC Line placed
-TTE unremarkable for acute pathology
-Lyme PCR pending
-No mass or DVT noted on imaging
-F/u Ortho, ID, OMFS outpatient (already scheduled)
#Transaminitis
-may be due to ongoing infection
-f/u hepatitis - negative
-bili wnl and no ruq tenderness - low probability of gallbladder pathology
#Multiple right-sided epididymal cysts and prominent right rete testes most likely combination of which correlates with suspected mass incompletely included on recent CT
#Moderate left hydrocele.
#BPH
-f/u urology ouptatient
#Hyponatremia
-mild
-ctm
#Anemia
-most likely 2/2 to acute infection
-has hemorrhoidal bleeding
-overdue for colonoscopy - cont to follow up outpatient with GI
#Hemorrhoids
-Anusol
#BPH
-cont tamsuolin
#DVT ppx
-hsq
More than 30 minutes spent in discharge including
Final examination of the patient
Summarizing hospital stay
Instructions for continuing care to all relevant caregivers
Preparation of discharge records, prescriptions, and referral forms
Total time spent (35 in minutes):
Anticipated Discharge: Today
Subjective/Interval History
-
Date of Service: April 02, 2024
no acute events, some hemorrhoidal bleeding noted
Objective Data
-
Labs:
Laboratory Results
04/02/24
04:13
WBC 10.2
Hgb 10.5 L
Hct 29.8 L
Plt Count 293
Sodium 135
Potassium 4.2
Chloride 107
Carbon Dioxide 28
BUN 23 H
Creatinine 0.6 L
Glucose 107 H
Calcium 8.4
Total Bilirubin 0.4
AST 48
ALT 70 H
Alkaline Phosphatase 159 H
Vital Signs:
Vital Signs
Temp Pulse Resp BP Pulse Ox
98.0 F 74 16 149/93 97
04/02/24 08:30 04/02/24 08:30 04/02/24 08:30 04/02/24 08:30 04/02/24 08:30
I&O
04/01/24 04/02/24 04/03/24
06:59 06:59 06:59
Intake Total 1115 / 1115 1440 / 1440
Output Total 600 / 600 300 / 300
Balance 515 / 515 1140 / 1140
Review of Systems
-
History Source: Patient
All other systems: Not reviewed unless documented
Data Reviewed
-
Total Time Spent with Patient (in minutes): 41
CT Scan: Image personally visualized and interpreted and Report Reviewed by me
Medical Tests (Nuc Med, Echo etc): Report Reviewed by me
Labs: Labs Reviewed by me
--- NOTE | 2024-04-02 12:28 | W.DS.TRANS ---
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
-
Discharge Instructions:
Sleep Apnea Risk Intermediate
Discharge Diagnosis/Procedures R knee scope 03/31/septic joint
Diet Regular
Activity As tolerated
Driving Restrictions No driving
Bathing Restrictions OK to Shower
Blood Work cbc (HgB) and cmp (LFTs) in 4-5 days
Wound Care Incisions open to air unless drainage noted use
light dressing until dry
Instructions:
Stand-Alone Forms:
Changes to Home Medications: Yes
Discharge Medications:
DC Medications w/original date entered in [employer]
ibuprofen 200 mg tablet (Advil) 400 mg PO Q6H PRN discomfort 03/29/24
tamsulosin 0.4 mg capsule (Flomax) 0.4 mg PO DAILY Urinary Issue 03/29/24
acetaminophen 325 mg tablet (Tylenol) 650 mg PO Q4H PRN pain 03/31/24
ceftriaxone 2 gram solution for injection 2,000 mg IV Q24H #0 ea 04/02/24
hydrocortisone acetate 25 mg rectal suppository (Anusol-HC) 25 mg ID DAILY #12 ea 04/02/24
Home Medication Changes
ceftriaxone 2 gram solution for injection 2,000 mg IV Q24H #0 ea 04/02/24
hydrocortisone acetate 25 mg rectal suppository (Anusol-HC) 25 mg ID DAILY #12 ea 04/02/24
Pending Results: No
[2024-04-02 14:44] VITALS: BP 161/90
--- NOTE | 2024-04-02 14:56 | CM ---
Patient has been medically cleared for discharge to home with [facility]. [facility] RN educated and instructed on IV administration. Patient declined HH VN. His serenityancee' is an RN and will care for his wounds. Patient has
arranged for transport home.
[facility] FAX # [phone]
[2024-04-02] MEDS: HEPARIN SC (15:14)
[2024-04-02 15:58] VITALS: BP 142/88
[2024-04-02] MEDS: ROCEPHIN 2000 MG IV (17:01)
[2024-04-02] MEDS: STERILE WATER FOR INJECTION 20 ML IV (17:01)
[2024-04-04 08:08] LABS: Lyme Disease DNA by PCR Not Detected; Lyme Source Synovial fluid
== END 2024-04-02 17:40 | disposition home or self-care (01) | DRG 486 ==
LOC: 2 SOUTH 15:41
PROVIDERS: Physician Assistant Surgical; Radiology Diagnostic Radiology; ADMITTING PHYSICIAN Hospitalist; ATTENDING PHYSICIAN Internal Medicine; CONSULT PHYSICIAN Student in an Organized Health Care Education/Training Program; OTHER PHYSICIAN Specialist
PROC: 0S9C4ZX Drainage of Right Knee Joint, Percutaneous Endoscopic Approach, Diagnostic (ICD-10-PCS; 2024-03-31)
PROC: 0SBC4ZZ Excision of Right Knee Joint, Percutaneous Endoscopic Approach (ICD-10-PCS; 2024-03-31)
PROC: 02HV33Z Insertion of Infusion Device into Superior Vena Cava, Percutaneous Approach (ICD-10-PCS; 2024-04-01)
DX: M00.9 Pyogenic arthritis, unspecified (principal); E87.1 Hypo-osmolality and hyponatremia; S83.241A Other tear of medial meniscus, current injury, right knee, initial encounter; M17.0 Bilateral primary osteoarthritis of knee; X58.XXXA Exposure to other specified factors, initial encounter; Y93.9 Activity, unspecified; I11.9 Hypertensive heart disease without heart failure; R74.01 Elevation of levels of liver transaminase levels; M65.861 Other synovitis and tenosynovitis, right lower leg; F17.290 Nicotine dependence, other tobacco product, uncomplicated; K02.9 Dental caries, unspecified; K64.9 Unspecified hemorrhoids; D64.9 Anemia, unspecified; N43.3 Hydrocele, unspecified; M25.461 Effusion, right knee; K05.20 Aggressive periodontitis, unspecified; R50.9 Fever, unspecified; R05.9 Cough, unspecified; N40.0 Benign prostatic hyperplasia without lower urinary tract symptoms; Z87.440 Personal history of urinary (tract) infections; Z11.52 Encounter for screening for COVID-19
CPT/HCPCS: 70355; 71045; 71260; 74177; 76870; 80053; 81003; 82248; 82565; 82728; 83036; 84520; 85025; 85027; 86140; 86618; 86705; 86706; 86709; 86803; 87015; 87040; 87070; 87176; 87205; 87340; 87389; 87476; 87502; 87811; 89051; 89060; 93005; 93306; 93970; 93976; 97116; 97162; Q9967

== ENCOUNTER → 2024-04-30 09:51 | Outpatient (REF) | payer OTHER, SELFPAY ==
[2024-04-30 10:34] LABS: % Basophils 0.7 % (0-2); % Immature Granulocytes 0.3 % (0-0.5); % Lymphocytes 26.4 % (20.5-51.1); % Monocytes 6.5 % (1.7-9.3); % Neutrophils 64.1 % (42.2-75.2); Absolute Basophils 0.1 10^3/uL (0-0.2); Absolute Eosinophils 0.1 10^3/uL (0-0.7); Absolute Lymphocytes 1.8 10^3/uL (1.2-3.4); Absolute Monocytes 0.5 10^3/uL (0.1-0.6); Absolute Neutrophils 4.4 10^3/uL (1.4-6.5); Hematocrit 38.8 % (39.0-52.0); Mean Corp Hgb Conc. 33.5 g/dL (33.0-37.0); Mean Corpuscular Hgb 30.2 pg (27.0-31.0); Mean Platelet Volume 8.9 fL (7.4-10.4); Nucleated Red Blood Cells % 0 % (-); Platelet Count 258 10^3/uL (130-400); Red Blood Cell Count 4.31 10^6/uL (4.70-6.10); White Blood Cell Count 6.9 10^3/uL (4.8-10.8)
[2024-04-30 11:40] LABS: Erythrocyte Sed Rate 50 mm/hour (0-20)
[2024-04-30 14:30] LABS: Body Fluid WBC 1840 /CUMM
[2024-04-30 14:31] LABS: Body Fluid Mononuclear 25.6 %; Body Fluid Polymorphonuclear 74.4 %
[2024-04-30 14:45] LABS: Body Fluid Second Tech SS
== END ==
LOC: REG 09:51
PROVIDERS: ATTENDING PHYSICIAN Specialist; FAMILY PHYSICIAN Family Medicine
DX: M25.461 Effusion, right knee (principal)
CPT/HCPCS: 36415; 85025; 85652; 86140; 87015; 87070; 87205; 89051; 89060

== ENCOUNTER → 2024-07-09 06:14 | Day surgery (SDC) | payer OTHER, SELFPAY | LOC: GI 06:14 | PROVIDERS: ATTENDING PHYSICIAN Internal Medicine Gastroenterology | DX: Z12.11 Encounter for screening for malignant neoplasm of colon (principal); K64.8 Other hemorrhoids; K57.30 Diverticulosis of large intestine without perforation or abscess without bleeding; Z80.0 Family history of malignant neoplasm of digestive organs | CPT/HCPCS: G0105 ==

== ENCOUNTER → 2025-01-25 12:50 | Outpatient (REF) | payer OTHER, SELFPAY | LOC: MRI 3T 12:50 | PROVIDERS: ATTENDING PHYSICIAN Surgery; FAMILY PHYSICIAN Family Medicine | DX: R97.20 Elevated prostate specific antigen [PSA] (principal) | CPT/HCPCS: 72197; A9575 ==

== ENCOUNTER → 2025-03-31 07:30 | Outpatient (REF) | payer OTHER, SELFPAY | LOC: CLAB 07:30 | PROVIDERS: ATTENDING PHYSICIAN Surgery | DX: K60.50 Anorectal fistula, unspecified (principal) | CPT/HCPCS: 88304 ==

== ENCOUNTER 2025-07-04 06:14 | Day surgery (SDC) | payer OTHER, SELFPAY ==
--- NOTE | 2025-06-15 14:14 | CM ---
CM reviewed medical records. CM left message to discuss any discharge planning concerns. CM will remain available as needed.
--- NOTE | 2025-06-16 15:04 | CM ---
CM spoke with patient via live telephone. Patient confirmed demographics. Patient lives indepednently with partner who will be able to drive him to and from his surgery. Patient does not have a history of VN< SNF. Patient uses a cane. CM encouraged
patient to call [facility] to obtain a walker. Patient is active with his PCP. Patient uses [facility] for medication services.
CM encouraged patient to make outpatient PT appointments at [facility].
PLAN: Home
[2025-06-17 14:02] VITALS: BMI 29.4
[2025-06-17 14:41] LABS: Hematocrit 37.3 % (39.0-52.0); Hemoglobin 13.6 g/dL (13.0-18.0); Mean Corp Hgb Conc. 36.5 g/dL (33.0-37.0); Mean Corpuscular Volume 93.3 fL (80.0-94.0); Platelet Count 214 10^3/uL (130-400); Red Cell Dist. Width 14.3 % (11.5-14.5)
[2025-06-17 15:10] LABS: ALT (SGPT) 22 U/L (0-50); AST (SGOT) 31 U/L (17-59); Albumin 4.5 g/dl (3.5-5.0); Alkaline Phosphatase 112 U/L (38-126); Blood Urea Nitrogen 28 mg/dl (9-20); Calcium 9.1 mg/dl (8.4-10.2); Carbon Dioxide 25 mmol/L (22-30); Chloride 106 mmol/L (98-107); Estimated Creatinine Clearance 89 ml/min; Glucose 83 mg/dl (70-99); Potassium 4.4 mmol/L (3.5-5.1); Sodium 141 mmol/L (135-145); Total Protein 8.3 g/dl (6.3-8.2); eGFR > 60.00
[2025-06-17 17:04] VITALS: BMI 29.4
[2025-06-18 14:43] LABS: Glycohemoglobin (HgbA1c) 5.2 % (4.0-5.6)
--- NOTE | 2025-06-20 14:03 | VNURNOTE ---
Patient is scheduled for an elective R TKA on 07/04 - he is a same day patient with Dr Lay. Spoke with patient prior to surgery. Introduced role of [facility] Liaison. Patient reports that he lives with his sig other .
He has a single point cane. Instructed him to obtain a rolling walker and bring it the day of surgery.
PCP is Dr Naik.
Discussed [facility] joint protocol and post surgical plans.
Reviewed that he will have VN services initially and will then start outpatient PT.
Patient selects [facility] for his home care needs and will go to [facility] for outpatient PT. Scheduled TBD. Instructed pt to schedule outpt PT for 07/07.
Patient is in agreement with plan and states that his sig other will be home with him. Referral placed in [facility].
Plan: [facility] per [facility] joint protocol then outpt PT TBD.
[2025-07-04] VITALS (11 sets, daily range): BP systolic 124–152; BP diastolic 72–97
[2025-07-04] MEDS: NORMOSOL-R/PLASMALYTE-A 1000 IV (10:05)
[2025-07-04] MEDS: TYLENOL 650 MG PO (10:17)
[2025-07-04] MEDS: CELEBREX 200 MG PO (10:17)
--- NOTE | 2025-07-04 12:39 | W.DS.TRANS ---
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
-
Discharge Instructions:
Sleep Apnea Risk Intermediate
Discharge Diagnosis/Procedures R TKA Dr. Lay 07/04/25
Diet As tolerated
Activity With Walker
Driving Restrictions No driving
Bathing Restrictions OK to Shower
Other Services PT
Instructions:
Stand-Alone Forms: SDS Total Hip and Knee D/C
Changes to Home Medications: Yes
Discharge Medications:
DC Medications w/original date entered in [facility]
cefadroxil 500 mg capsule 500 mg PO BID #14 caps 06/17/25
famotidine 20 mg tablet (Pepcid) 20 mg PO HS #30 tabs 06/17/25
gabapentin 300 mg capsule 300 mg PO HS neuropathic pain/sleep #10 caps 06/17/25
meloxicam 15 mg tablet 15 mg PO DAILY Anti-inflammatory #14 tabs 06/17/25
ondansetron HCl 4 mg tablet 4 mg PO Q6H PRN nausea and vomiting #30 tabs 06/17/25
oxycodone 5 mg tablet 5 - 10 mg (1 - 2 x 5 mg) PO Q6H PRN moderate-severe pain #30 tabs 06/17/25
mupirocin 2 % topical ointment 1 applic intranasal BID #1 tube 06/27/25
Saccharomyces boulardii 250 mg capsule (Florastor) 250 mg PO BID #1 cap 07/03/25
aspirin 325 mg tablet 325 mg PO DAILY blood clot prevention #1 tab 07/03/25
docusate sodium 100 mg capsule (Colace) 100 mg PO BID stool softner #1 cap 07/03/25
magnesium hydroxide 400 mg/5 mL oral suspension (Milk of Magnesia) 30 ml PO HS PRN constipation #1 mL 07/03/25
sennosides 8.6 mg tablet (Senokot) 17.2 mg (2 x 8.6 mg) PO BID laxative #2 tabs 07/03/25
losartan 50 mg-hydrochlorothiazide 12.5 mg tablet 1 tab PO DAILY #0 tabs 07/04/25
tamsulosin 0.4 mg capsule (Flomax) 0.4 mg PO DAILY Urinary Issue #0 caps 07/04/25
Home Medication Changes
cefadroxil 500 mg capsule 500 mg PO BID #14 caps 06/17/25
famotidine 20 mg tablet (Pepcid) 20 mg PO HS #30 tabs 06/17/25
gabapentin 300 mg capsule 300 mg PO HS neuropathic pain/sleep #10 caps 06/17/25
meloxicam 15 mg tablet 15 mg PO DAILY Anti-inflammatory #14 tabs 06/17/25
ondansetron HCl 4 mg tablet 4 mg PO Q6H PRN nausea and vomiting #30 tabs 06/17/25
oxycodone 5 mg tablet 5 - 10 mg (1 - 2 x 5 mg) PO Q6H PRN moderate-severe pain #30 tabs 06/17/25
mupirocin 2 % topical ointment 1 applic intranasal BID #1 tube 06/27/25
Saccharomyces boulardii 250 mg capsule (Florastor) 250 mg PO BID #1 cap 07/03/25
aspirin 325 mg tablet 325 mg PO DAILY blood clot prevention #1 tab 07/03/25
docusate sodium 100 mg capsule (Colace) 100 mg PO BID stool softner #1 cap 07/03/25
magnesium hydroxide 400 mg/5 mL oral suspension (Milk of Magnesia) 30 ml PO HS PRN constipation #1 mL 07/03/25
sennosides 8.6 mg tablet (Senokot) 17.2 mg (2 x 8.6 mg) PO BID laxative #2 tabs 07/03/25
Pending Results: No
[2025-07-04] MEDS: ANCEF 5 IV (17:06)
[2025-07-04] MEDS: CYKLOKAPRON 650 MG PO (17:06)
[2025-07-04] MEDS: ROXICODONE 5 MG PO (18:01)
[2025-07-04] MEDS: FLOMAX 0.4 MG PO (18:51)
== END 2025-07-04 19:10 | disposition home or self-care (01) ==
LOC: SDS 06:14
PROVIDERS: ATTENDING PHYSICIAN Specialist; FAMILY PHYSICIAN Family Medicine; OTHER PHYSICIAN Physician Assistant
DX: M17.11 Unilateral primary osteoarthritis, right knee (principal); E80.4 Gilbert syndrome; Z87.39 Personal history of other diseases of the musculoskeletal system and connective tissue; Z98.890 Other specified postprocedural states
CPT/HCPCS: 27447; 36415; 73560; 80053; 83036; 85027; 87070; 93005; 97162; C1713; C1776